=== PATIENT | female | born 2000 | race Caucasian/White ===

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

== ENCOUNTER 2022-03-20 15:09 | Observation (INO) | payer OTHER, MEDICAID ==
[~2022-03-20] VITALS: Ht 165.1 cm; Wt 77.1 kg
== END 2022-03-20 17:21 | disposition home or self-care (01) ==
LOC: 8 EST LDRP 15:09
PROVIDERS: ADMIT Obstetrics & Gynecology; ATTEND Obstetrics & Gynecology
DX: O42.912 Preterm premature rupture of membranes, unspecified as to length of time between rupture and onset of labor, second trimester (principal); Z3A.22 22 weeks gestation of pregnancy
CPT/HCPCS: 59025; 76805; G0378; 99281; G0379

== ENCOUNTER 2022-06-18 13:45 | Emergency (ER) | payer MEDICAID, OTHER ==
[~2022-06-18] VITALS: Ht 165.1 cm; Wt 85.0 kg
[2022-06-18 14:19] VITALS: BP 132/90
[2022-06-18 14:22] LABS: BASOPHILS % 0.8 % (0.0-2.0); HEMATOCRIT. 37.6 % (36.0-48.0); HEMOGLOBIN. 12.8 g/dL (12.0-16.0); LYMPHOCYTES % 19.7 % (20.0-50.0); MEAN CORPUSCULAR HEMOGLOBIN 28.3 pg (28.0-32.0); MEAN PLATELET VOLUME 8.1 fl (7.4-10.4); MONOCYTES % 6.8 % (2.0-8.0); NEUTROPHILS % 71.7 % (40.0-76.0); PLATELET 295 x1000/uL (130-400); RED BLOOD CELL COUNT 4.52 mill/uL (4.2-5.4); RED CELL DISTRIBUTION WIDTH 13.6 % (11.6-14.6)
[2022-06-18 14:29] LABS: CHLORIDE 105 mEq/L (98-107)
[2022-06-18 19:33] LABS: CLARITY URINE CLOUDY (CLEAR); COLOR URINE DARK YELLOW (YELLOW); KETONES URINE TRACE (NEGATIVE); LEUKOCYTE ESTERASE URINE 1+ (NEGATIVE); NITRITE URINE POSITIVE (NEGATIVE); OCCULT BLOOD URINE NEGATIVE (NEGATIVE); PROTEIN URINE 1+ (NEGATIVE); SPECIFIC GRAVITY URINE 1.027 (1.005-1.030)
== END 2022-06-18 20:19 | disposition left against medical advice (07) ==
LOC: ER 13:45
DX: O28.0 Abnormal hematological finding on antenatal screening of mother (principal); R74.01 Elevation of levels of liver transaminase levels; O23.43 Unspecified infection of urinary tract in pregnancy, third trimester; N39.0 Urinary tract infection, site not specified; O26.893 Other specified pregnancy related conditions, third trimester; F42.4 Excoriation (skin-picking) disorder; Z3A.35 35 weeks gestation of pregnancy
CPT/HCPCS: 36415; 76700; 76805; 80053; 81003; 85025; 99284

== ENCOUNTER 2022-06-22 18:07 | Observation (INO) | payer OTHER ==
[2022-06-22] MEDS ORDERED: BETAMETHASONE ACET/BETAMET 30 MG/5 ML VIAL IM NR (18:45)
[2022-06-22] MEDS ORDERED: FERR324T11 PO (20:43)
[2022-06-22] MEDS ORDERED: PV W1TAB21 PO (20:43)
[2022-06-22] MEDS ORDERED: DIPHENHYDRAMINE 50MG/ML VIAL IM NR (20:45)
[2022-06-22 21:44] LABS: CHLORIDE 106 mEq/L (98-107)
[2022-06-22] MEDS ORDERED: DIPH25CA83 PO (22:38)
== END 2022-06-22 23:00 | disposition home or self-care (01) ==
LOC: 8 EST LDRP 18:07
PROVIDERS: ADMIT Obstetrics & Gynecology; ATTEND Obstetrics & Gynecology
DX: O26.613 Liver and biliary tract disorders in pregnancy, third trimester (principal); K83.1 Obstruction of bile duct; Z3A.36 36 weeks gestation of pregnancy
CPT/HCPCS: 36415; 59025; 76815; 76818; 80053; 82239; 96372; J1200; 99281; G0378

== ENCOUNTER 2023-04-03 15:01 | Emergency (ER) | payer OTHER ==
[~2023-04-03] VITALS: Ht 165.1 cm; Wt 77.0 kg
[~2023-04-03 15:01] MED LIST: FERR324T11 PO; PV W1TAB21 PO
[2023-04-03 15:45] LABS: BASOPHILS % 0.8 % (0.0-2.0); CHLORIDE 106 mEq/L (98-107); EOSINOPHILS % 0.4 % (0.0-5.0); HEMATOCRIT. 37.3 % (36.0-48.0); HEMOGLOBIN. 12.6 g/dL (12.0-16.0); MEAN CORPUSCULAR HEMOGLOBIN 26.4 pg (28.0-32.0); MEAN CORPUSCULAR VOLUME 78.2 fL (81.0-99.0); MEAN PLATELET VOLUME 7.5 fl (7.4-10.4); MONOCYTES % 3.8 % (2.0-8.0); PLATELET 416 x1000/uL (130-400); RED BLOOD CELL COUNT 4.77 mill/uL (4.2-5.4); RED CELL DISTRIBUTION WIDTH 15.5 % (11.6-14.6)
[2023-04-03] MEDS ORDERED: DIPHENHYDRAMINE 50MG/ML VIAL IV ONE (17:00)
[2023-04-03] MEDS ORDERED: SODIUM CHLORIDE 0.9% 1,000 ML IV ONE (17:00)
[2023-04-03] MEDS ORDERED: KETOROLAC 15MG/ML VIAL IV ONE (17:00)
[2023-04-03] MEDS ORDERED: METOCLOPRAMIDE HCL 10MG/2ML VIAL IV ONE (17:00)
[2023-04-03 17:24] LABS: ETHANOL BLOOD < 10 mg/dL
[2023-04-03 17:52] LABS: CLARITY URINE CLOUDY (CLEAR); COLOR URINE DARK YELLOW (YELLOW); KETONES URINE 4+ (NEGATIVE); LEUKOCYTE ESTERASE URINE TRACE (NEGATIVE); NITRITE URINE NEGATIVE (NEGATIVE); OCCULT BLOOD URINE NEGATIVE (NEGATIVE); PH URINE 8.5 (4.5-8.0); PROTEIN URINE 2+ (NEGATIVE)
[2023-04-03 18:08] LABS: *AMPHETAMINES SCREEN URINE NEGATIVE (NEGATIVE); *BARBITURATES SCREEN URINE NEGATIVE (NEGATIVE); *BENZODIAZEPINES SCREEN URINE NEGATIVE (NEGATIVE); *COCAINE SCREEN URINE NEGATIVE (NEGATIVE); METHADONE URINE SCREEN NEGATIVE (NEGATIVE); OPIATES URINE SCREEN NEGATIVE (NEGATIVE); PHENCYCLIDINE URINE SCREEN NEGATIVE (NEGATIVE)
[2023-04-03 18:25] LABS: CANNABINOID URINE SCREEN PRESUMTIVE POSITIVE (NEGATIVE)
[2023-04-03] MEDS ORDERED: ACET-2708 MT (18:53)
[2023-04-03] MEDS ORDERED: METO-293 MT (18:53)
[2023-04-03 19:00] VITALS: BP 127/85
== END 2023-04-03 19:00 | disposition home or self-care (01) ==
LOC: ER 15:01
DX: F41.9 Anxiety disorder, unspecified (principal); F12.10 Cannabis abuse, uncomplicated; Z90.49 Acquired absence of other specified parts of digestive tract
CPT/HCPCS: 36415; 76705; 80053; 80305; 80320; 81003; 81025; 83690; 83735; 85025; 96361; 96374; 96375; 99285; J1200; J1885; J2765; J7030; Z7610; G0480

== ENCOUNTER 2025-03-15 12:01 | Inpatient (IN) | payer MEDICAID, OTHER ==
[~2025-03-15] VITALS: Ht 167.6 cm; Wt 81.2 kg
[~2025-03-15 12:01] MED LIST changes: +ACET-2708 MT; +METO-293 MT
[2025-03-15 12:06] VITALS: O2SAT 98
[2025-03-15 12:50] LABS: CHLORIDE 104 mEq/L (98-107); HEMATOCRIT. 38.7 % (36.0-48.0); MEAN CORPUSCULAR HEMOGLOBIN 28.1 pg (28.0-32.0); MEAN CORPUSCULAR HGB CONC 33.5 g/dL (31.0-37.0); MEAN CORPUSCULAR VOLUME 83.8 fL (81.0-99.0); MEAN PLATELET VOLUME 8.1 fl (7.4-10.4); PLATELET 376 x1000/uL (130-400); POTASSIUM 3.4 mEq/L (3.5-5.1); RED BLOOD CELL COUNT 4.62 mill/uL (4.2-5.4); RED CELL DISTRIBUTION WIDTH 13.4 % (11.6-14.6); SODIUM 136 mEq/L (136-145); WHITE BLOOD COUNT 15.8 x1000/uL (4.5-11.0)
[2025-03-15 12:51] LABS: CALCIUM 9.2 mg/dL (8.7-10.4); CARBON DIOXIDE 18 mEq/L (21-32)
[2025-03-15 12:56] LABS: CREATININE 0.6 mg/dL (0.6-1.0); DIFFERENTIAL COMMENT 1; GLUCOSE 160 mg/dL (70-105); UREA NITROGEN BLOOD 7 mg/dL (9-23)
[2025-03-15 13:10] LABS: B-HCG QUANTITATIVE 26532 mIU/mL (<6)
[2025-03-15] MEDS: ONDANSETRON HCL 4MG/2ML INJ IV ONE (13:28)
[2025-03-15] MEDS: SODIUM CHLORIDE 0.9% 1,000 ML IV ONE (13:29)
[2025-03-15 14:00] LABS: PLATELET ESTIMATE NORMAL
[2025-03-15 16:00] VITALS: BP 138/86; PULSE 98; RESP 16; TEMP 36.5; O2SAT 100
[2025-03-15] MEDS ORDERED: HYDROCODONE/ACETAMINOPHEN 10/325MG TABLET PO PRN (16:30)
[2025-03-15] MEDS ORDERED: NALOXONE HCL 0.4MG/ML VIAL IV PRN (16:45)
[2025-03-15 16:46] VITALS: BP 138/86; PULSE 98; RESP 16; TEMP 36.5
[2025-03-15] MEDS: ONDANSETRON HCL 4MG/2ML INJ IV PRN (17:03)
[2025-03-15 20:00] VITALS: BP 131/81; PULSE 103; PULSE 96; RESP 18; TEMP 36.5; O2SAT 99
[2025-03-16] VITALS: BP 126/77; PULSE 98; RESP 18; TEMP 36.5; O2SAT 98
[2025-03-16 04:00] VITALS: BP 104/60; PULSE 103; RESP 18; TEMP 36.5; O2SAT 99
[2025-03-16] MEDS: SODIUM CHLORIDE 0.9% 1,000 ML IV SCH (06:51)
[2025-03-16 08:00] VITALS: BP 127/79; PULSE 98; RESP 16; TEMP 36.9; O2SAT 99
[2025-03-16] MEDS: PRENATAL VIT/FE FUMARATE/FA TABLET PO SCH (08:38)
[2025-03-16] MEDS ORDERED: ACETAMINOPHEN 325MG TABLET PO PRN ×2 (09:45→10:00)
[2025-03-16] MEDS ORDERED: NALOXONE HCL 0.4MG/ML VIAL IV PRN (10:00)
[2025-03-16 10:48] LABS: BASOPHILS % 0.1 % (0.0-2.0); HEMATOCRIT. 36.5 % (36.0-48.0); HEMOGLOBIN. 12.3 g/dL (12.0-16.0); MEAN CORPUSCULAR HEMOGLOBIN 27.8 pg (28.0-32.0); MEAN CORPUSCULAR HGB CONC 33.6 g/dL (31.0-37.0); MEAN CORPUSCULAR VOLUME 82.9 fL (81.0-99.0); MEAN PLATELET VOLUME 8.2 fl (7.4-10.4); MONOCYTES % 6.2 % (2.0-8.0); NEUTROPHILS % 82.7 % (40.0-76.0); PLATELET 373 x1000/uL (130-400); RED BLOOD CELL COUNT 4.41 mill/uL (4.2-5.4); RED CELL DISTRIBUTION WIDTH 13.5 % (11.6-14.6)
[2025-03-16 11:40] LABS: CLARITY URINE CLEAR (CLEAR); COLOR URINE DARK YELLOW (YELLOW); GLUCOSE URINE NEGATIVE (NEGATIVE); KETONES URINE 3+ (NEGATIVE); LEUKOCYTE ESTERASE URINE NEGATIVE (NEGATIVE); NITRITE URINE NEGATIVE (NEGATIVE); OCCULT BLOOD URINE NEGATIVE (NEGATIVE); PH URINE 6.5 (4.5-8.0); PROTEIN URINE 1+ (NEGATIVE); SPECIFIC GRAVITY URINE 1.022 (1.005-1.030); UROBILINOGEN URINE 0.2 E.U./dL (0.2-1.0)
[2025-03-16 12:00] VITALS: BP 137/91; PULSE 86; RESP 17; TEMP 36.7; O2SAT 100
[2025-03-16 12:46] LABS: MUCUS URINE 3+ /lpf (< = 2+); SQUAMOUS EPITHELIAL CELL URINE 1+ /lpf (RARE/1+)
[2025-03-16 12:47] LABS: BACTERIA URINE TRACE; CALCIUM OXALATE CRYSTALS URINE 1+ /lpf; RBC URINE NONE SEEN /hpf (0-2); WBC URINE 0-2 /hpf (0-2)
[2025-03-16] MEDS: POTASSIUM CHLORIDE 20MEQ TABLET SR PO SCH (15:06)
[2025-03-16 16:00] VITALS: BP 147/85; PULSE 85; RESP 16; TEMP 36.8; O2SAT 100
[2025-03-16 16:55] LABS: CHLORIDE 105 mEq/L (98-107); POTASSIUM 3.7 mEq/L (3.5-5.1); SODIUM 137 mEq/L (136-145)
[2025-03-16 16:56] LABS: CARBON DIOXIDE 22 mEq/L (21-32)
[2025-03-16 16:57] LABS: CALCIUM 9.1 mg/dL (8.7-10.4)
[2025-03-16 17:00] LABS: BASOPHILS % 0.2 % (0.0-2.0); HEMATOCRIT. 36.7 % (36.0-48.0); HEMOGLOBIN. 12.2 g/dL (12.0-16.0); LYMPHOCYTES % 7.4 % (20.0-50.0); MEAN CORPUSCULAR HEMOGLOBIN 27.9 pg (28.0-32.0); MEAN CORPUSCULAR HGB CONC 33.2 g/dL (31.0-37.0); MEAN CORPUSCULAR VOLUME 83.9 fL (81.0-99.0); MEAN PLATELET VOLUME 8.4 fl (7.4-10.4); MONOCYTES % 3.4 % (2.0-8.0); PLATELET 375 x1000/uL (130-400); RED BLOOD CELL COUNT 4.37 mill/uL (4.2-5.4); RED CELL DISTRIBUTION WIDTH 13.6 % (11.6-14.6); WHITE BLOOD COUNT 15.3 x1000/uL (4.5-11.0)
[2025-03-16 17:01] LABS: CREATININE 0.5 mg/dL (0.6-1.0); GLUCOSE 117 mg/dL (70-105)
[2025-03-16 17:02] LABS: UREA NITROGEN BLOOD 8 mg/dL (9-23)
[2025-03-16 20:00] VITALS: BP 116/69; PULSE 82; RESP 16; TEMP 36.7; O2SAT 100
[2025-03-17] VITALS: BP 129/69; PULSE 76; RESP 16; TEMP 37.5; O2SAT 98
[2025-03-17 04:00] VITALS: BP 149/92; PULSE 89; RESP 16; TEMP 36.6; O2SAT 97
[2025-03-17 08:00] VITALS: BP 121/76; PULSE 89; RESP 18; TEMP 37.5; O2SAT 98
== END 2025-03-17 10:51 | disposition left against medical advice (07) | DRG 566 ==
LOC: ER 12:01 → 5WST 14:02 → EDBEDREQTM 14:04 → EDBEDREQ 14:04 → ENRESERV 14:19 → 6EST 03-16 11:36
PROVIDERS: ADMIT Internal Medicine; ATTEND Internal Medicine
DX: O21.1 Hyperemesis gravidarum with metabolic disturbance (principal); O23.41 Unspecified infection of urinary tract in pregnancy, first trimester; K52.9 Noninfective gastroenteritis and colitis, unspecified; N39.0 Urinary tract infection, site not specified; O99.611 Diseases of the digestive system complicating pregnancy, first trimester; Z53.29 Procedure and treatment not carried out because of patient's decision for other reasons; O99.281 Endocrine, nutritional and metabolic diseases complicating pregnancy, first trimester; Z3A.01 Less than 8 weeks gestation of pregnancy
CPT/HCPCS: 36415; 76801; 80048; 81003; 84702; 85025; 86850; 86900; 96374; 99285; A4606; J2405; J7030

== ENCOUNTER 2025-04-29 09:40 | Emergency (ER) | payer MEDICAID ==
[~2025-04-29] VITALS: Ht 170.2 cm; Wt 76.0 kg
[2025-04-29 09:53] VITALS: O2SAT 100
[2025-04-29 10:55] LABS: BASOPHILS % 0.7 % (0.0-2.0); HEMATOCRIT. 39.3 % (36.0-48.0); HEMOGLOBIN. 13.7 g/dL (12.0-16.0); LYMPHOCYTES % 19.9 % (20.0-50.0); MEAN CORPUSCULAR HEMOGLOBIN 28.2 pg (28.0-32.0); MEAN CORPUSCULAR HGB CONC 34.9 g/dL (31.0-37.0); MEAN CORPUSCULAR VOLUME 80.7 fL (81.0-99.0); MEAN PLATELET VOLUME 7.8 fl (7.4-10.4); MONOCYTES % 6.8 % (2.0-8.0); NEUTROPHILS % 72.6 % (40.0-76.0); PLATELET 438 x1000/uL (130-400); RED BLOOD CELL COUNT 4.87 mill/uL (4.2-5.4); RED CELL DISTRIBUTION WIDTH 13.5 % (11.6-14.6); WHITE BLOOD COUNT 12.1 x1000/uL (4.5-11.0)
[2025-04-29 11:29] LABS: CHLORIDE 99 mEq/L (98-107); POTASSIUM 3.1 mEq/L (3.5-5.1); SODIUM 136 mEq/L (136-145)
[2025-04-29 11:30] LABS: CARBON DIOXIDE 25 mEq/L (21-32)
[2025-04-29 11:31] LABS: CALCIUM 9.7 mg/dL (8.7-10.4)
[2025-04-29 11:35] LABS: CREATININE 0.7 mg/dL (0.6-1.0); GLUCOSE 121 mg/dL (70-105); UREA NITROGEN BLOOD 8 mg/dL (9-23)
[2025-04-29] MEDS: SODIUM CHLORIDE 0.9% 1,000 ML IV ONE (11:37)
[2025-04-29 11:38] LABS: HCG SCREEN NEGATIVE
[2025-04-29] MEDS: ONDANSETRON HCL 4MG/2ML INJ IV ONE (11:43)
[2025-04-29] MEDS: FAMOTIDINE 20MG/2ML VIAL IV ONE (11:45)
[2025-04-29] MEDS: KETOROLAC 30MG/ML VIAL IV STA (11:45)
[2025-04-29 12:41] LABS: ALANINE AMINOTRANSFERASE 198 IU/L (10-49); ALBUMIN 5.3 g/dL (3.2-4.8); ASPARTATE AMINOTRANSFERASE 204 IU/L (<34)
[2025-04-29 12:42] LABS: BILIRUBIN TOTAL 2.3 mg/dL (0.1-1.0)
[2025-04-29] MEDS: POTASSIUM CHLORIDE 20MEQ TABLET SR PO SCH (13:11)
[2025-04-29] MEDS: MAGNESIUM/ALUMINUM HYDROXIDE/SIMETHICONE 30ML UDC PO SCH (13:14)
[2025-04-29] MEDS: METOCLOPRAMIDE HCL 10MG/2ML VIAL IV SCH (13:15)
[2025-04-29] MEDS ORDERED: NAPR-681 MT (14:15)
[2025-04-29] MEDS ORDERED: ONDA-241 MT (14:15)
[2025-04-29] MEDS ORDERED: FAMO20TA8 MT (14:15)
[2025-04-29] MEDS ORDERED: BISM-77 MT (14:15)
[2025-04-29 14:56] VITALS: BP 112/84; PULSE 77; RESP 18; TEMP 37.1; O2SAT 99
[2025-04-29 15:32] LABS: CLARITY URINE CLEAR (CLEAR); COLOR URINE DARK YELLOW (YELLOW); GLUCOSE URINE NEGATIVE (NEGATIVE); KETONES URINE 2+ (NEGATIVE); LEUKOCYTE ESTERASE URINE 1+ (NEGATIVE); NITRITE URINE NEGATIVE (NEGATIVE); OCCULT BLOOD URINE TRACE (NEGATIVE); PH URINE 6.5 (4.5-8.0); PROTEIN URINE 2+ (NEGATIVE); SPECIFIC GRAVITY URINE 1.026 (1.005-1.030)
[2025-04-29 15:44] LABS: BACTERIA URINE TRACE; RBC URINE 0-2 /hpf (0-2); SQUAMOUS EPITHELIAL CELL URINE FEW /lpf (RARE/1+)
== END 2025-04-29 14:58 | disposition home or self-care (01) ==
LOC: ER 10:27
DX: K52.9 Noninfective gastroenteritis and colitis, unspecified (principal); E87.6 Hypokalemia; F12.90 Cannabis use, unspecified, uncomplicated; Z79.899 Other long term (current) drug therapy; Z90.49 Acquired absence of other specified parts of digestive tract; Z98.890 Other specified postprocedural states
CPT/HCPCS: 80076; 80048; 81003; 84703; 83690; 85025; 36415; 71045; 76705; 96361; 96374; 96375; 99285; J1308; J1885; J2765; J2405; J7030; Z7610 ×2